=== PATIENT | male | born 1950 | race Caucasian/White ===

== ENCOUNTER 2023-08-03 21:22 | Emergency (ER) | payer MEDICARE, OTHER ==
[~2023-08-03] VITALS: Ht 180.3 cm; Wt 127.0 kg
[2023-08-03 23:28] VITALS: BP 139/85; TEMP 98.5; O2SAT 99
== END 2023-08-03 23:29 | disposition home or self-care (01) ==
LOC: ER 21:26
DX: S80.212A Abrasion, left knee, initial encounter (principal); S80.211A Abrasion, right knee, initial encounter; S40.011A Contusion of right shoulder, initial encounter; S00.33XA Contusion of nose, initial encounter; S06.0X0A Concussion without loss of consciousness, initial encounter; R03.0 Elevated blood-pressure reading, without diagnosis of hypertension; W17.89XA Other fall from one level to another, initial encounter; Y93.89 Activity, other specified; Y92.89 Other specified places as the place of occurrence of the external cause; Y99.8 Other external cause status
CPT/HCPCS: 70450; 70486; 71045; A4606; A4663